=== PATIENT | female | born 1965 | race African-American/Black ===

== ENCOUNTER 2018-07-28 05:41 | Emergency (ER) | payer OTHER ==
[~2018-07-28] VITALS: Ht 170.2 cm; Wt 105.0 kg
[2018-07-28] MEDS ORDERED: HYDROCODONE/ACETAMINOPHEN 5/325MG TABLET PO ONE (07:15)
[2018-07-28 08:26] VITALS: BP 148/92
== END 2018-07-28 08:42 | disposition home or self-care (01) ==
LOC: ER 06:23
DX: M06.862 Other specified rheumatoid arthritis, left knee (principal); M06.861 Other specified rheumatoid arthritis, right knee; M06.842 Other specified rheumatoid arthritis, left hand; M06.841 Other specified rheumatoid arthritis, right hand; G89.29 Other chronic pain; B19.20 Unspecified viral hepatitis C without hepatic coma
CPT/HCPCS: 99283